=== PATIENT | female | born 1975 | race Caucasian/White ===

== ENCOUNTER 2023-07-23 20:52 | Emergency (ER) | payer MEDICAID ==
[~2023-07-23] VITALS: Ht 152.4 cm; Wt 74.8 kg
[2023-07-23 21:45] VITALS: BP_SYST 133; PULSE 95; RESP 17; TEMP 97.8; O2SAT 99
[2023-07-23 21:45] LABS: BASOPHILS % (AUTO) 0.6 % (0.0-2.0); EOSINOPHILS # (AUTO) 0.1 K/uL (0.0-0.4); EOSINOPHILS % (AUTO) 1.5 % (0.0-4.0); HEMATOCRIT 42.8 % (36-48); HEMOGLOBIN 14.4 g/dL (12.0-16.0); LYMPHOCYTES # (AUTO) 1.5 K/uL (1.0-5.5); LYMPHOCYTES % (AUTO) 18.8 % (20.5-51.5); MEAN CORPUSCULAR HEMOGLOBIN 26 pg (27-31); MEAN CORPUSCULAR HGB CONC 34 % (32-36); MEAN CORPUSCULAR VOLUME 78 fL (79.0-98.0); MONOCYTES # (AUTO) 0.6 K/uL (0.0-1.0); MONOCYTES % (AUTO) 8.4 % (1.7-9.3); NEUTROPHILS # (AUTO) 5.5 K/uL (1.8-7.7); NEUTROPHILS % (AUTO) 70.7 % (40.0-70.0); PLATELET COUNT (AUTO) 338 K/uL (130-430); RED CELL DISTRIBUTION WIDTH 17.6 % (9.0-15.0); WHITE BLOOD COUNT (AUTO) 7.8 K/uL (4.8-10.8)
[2023-07-23 22:07] LABS: CALCIUM 8.8 mg/dL (8.4-11.0); CREATININE 0.89 mg/dL (0.55-1.30); POTASSIUM 3.8 mmol/L (3.5-5.1)
[2023-07-23 22:11] LABS: ALBUMIN 3.4 g/dL (3.4-4.8); TOTAL BILIRUBIN 0.3 mg/dL (0.0-1.0); TOTAL PROTEIN, SERUM 7.7 g/dL (6.4-8.3)
[2023-07-24 06:05] VITALS: BP_SYST 131; PULSE 85; RESP 16; TEMP 98.3; O2SAT 99
== END 2023-07-24 06:55 | disposition home or self-care (01) ==
LOC: SED 20:52
DX: R29.810 Facial weakness (principal); R51.9 Headache, unspecified; Z79.899 Other long term (current) drug therapy
CPT/HCPCS: 36415; 70450-TC; 76376; 80053; 83735; 85025; 99285

== ENCOUNTER 2023-09-11 20:23 | Emergency (ER) | payer MEDICAID ==
[~2023-09-11] VITALS: Ht 152.4 cm; Wt 77.1 kg
[2023-09-11 20:30] VITALS: BP_SYST 123; PULSE 104; RESP 18; TEMP 98.3; O2SAT 99
[2023-09-11] MEDS ORDERED: IBUPROFEN 800 MG TABLET PO ONE (21:00)
[2023-09-11] MEDS ORDERED: HYDROcodone/ACETAMIN 7.5-325 MG TAB PO ONE (21:00)
[2023-09-11] MEDS ORDERED: SOM350 PO (21:59)
[2023-09-11] MEDS ORDERED: IBUP-1969 PO (21:59)
[2023-09-11 22:05] VITALS: BP_SYST 123; PULSE 104; RESP 18; TEMP 98.3; O2SAT 99
== END 2023-09-11 22:05 | disposition home or self-care (01) ==
LOC: SED 20:23
DX: S70.02XA Contusion of left hip, initial encounter (principal); Z79.899 Other long term (current) drug therapy; W18.40XA Slipping, tripping and stumbling without falling, unspecified, initial encounter; Y93.89 Activity, other specified; Y92.89 Other specified places as the place of occurrence of the external cause; Y99.8 Other external cause status
CPT/HCPCS: 72100-TC; 72170-TC; 73502; 99284